=== PATIENT | female | born 1970 ===

== ENCOUNTER 2025-10-13 13:44 | Outpatient (AMB) | payer OTHER, SELFPAY ==
--- NOTE | 2025-10-13 14:10 | A.OFFVIS_ITS ---
Intake Visit Reasons: 6M [employer] Engineer Required: Yes [employer] Control [employer] Engineer Name: #[id number] Allergies No Known Allergies Allergy (Verified 10/13/25 14:14) Medication List - Last Reconciled 10/13/25 by Carmen Beltrán CNP atorvastatin 80 mg PO DAILY cyanocobalamin (vitamin B-12) mcg PO dulaglutide (Trulicity) 4.5 mg subcut QWEEK empagliflozin (Jardiance) 25 mg PO DAILY gabapentin 100 mg PO DAILY lisinopril 2.5 mg PO DAILY metformin 1,000 mg PO BID sertraline mg PO HPI Comments Details: 55-year-old woman with diabetes since at least 2018, bilateral carpal tunnel syndrome, and diabetic peripheral neuropathy. She started with numbness to both hands along with numbness, tingling, and pain, a burning sensation, to toes around fall 2023. She was doing okay. She was having some occasional numbness to hands, using wrist splints at night as needed. She was having some more pain to feet, primarily R heel. Gabapentin dose increased from 100mg to 300mg at last appointment, but she did not try increased dose. Medication helped with pain some, but pain would return. Numbness and tingling to feet was unchanged. She was walking with cane, no falls. Blood sugar was regular. [facility] Medical History (Updated 10/13/25 @ 14:14 by Carmen Beltrán CNP) Hyperlipidemia Diabetes Diabetic peripheral neuropathy Carpal tunnel syndrome Review of Systems Const Denies chills, Denies daytime sleepiness, Reports difficulty sleeping, Denies fatigue, Denies fever(s), Denies frequent falls, Reports headache(s), Denies increased appetite, Denies poor appetite, Denies snoring, Denies weakness, Denies weight gain and Denies weight loss Eyes Denies loss of vision ENT Denies vertigo, Reports dizziness, Reports headache(s) and Reports neck pain Card Denies chest pain at rest, Denies chest pain with activity, Denies syncope, Denies leg edema, Denies palpitations, Denies dyspnea and Denies dyspnea on exertion Resp Denies cough, Denies dyspnea, Denies dyspnea on exertion and Denies snoring GI Denies abdominal pain, Denies constipation, Denies heartburn, Denies diarrhea and Denies nausea Denies urinary frequency, Denies urinary incontinence and Denies urinary urgency Musc Denies abnormal gait, Reports back pain, Denies myalgias, Denies arthralgias, Reports neck pain, Reports numbness and Reports tingling Neuro Denies abnormal gait, Denies vertigo, Reports dizziness, Denies syncope, Denies frequent falls, Reports headache(s), Denies lack of coordination, Denies loss of vision, Denies memory loss, Reports numbness, Denies Other visual disturbances, Denies restless legs, Denies seizure-like activity, Reports tingling, Denies paresthesias, Denies tremor(s) and Denies weakness Psych Denies anxiety, Denies depression, Denies auditory hallucinations, Denies memory loss and Denies visual hallucinations Endo Denies fatigue and Denies palpitations Physical Exam Const Other: General Appearance:? normal, in no acute distress. Heart:? S1, S2 normal, no murmurs. Lungs:? clear anteriorly and posteriorly. Musculoskeletal:? normal. Extremities:? no edema. Psych:? alert, oriented, cognitive function intact, cooperative with exam. Neuro Other: Abnormal Neurological Findings:?5-/5 R research scholar. Decreased pin prick distal to mid tarsal level. Walking with cane. ? Mental Status: alert and oriented X 3. Normal attention, orientation, memory, and affect. Cranial Nerves: Pupils are equal, round, and reactive to light. External ocular muscles are intact. Visual montaño are full, no ptosis. Face is symmetrical, no facial weakness or droop. Facial sensations are normal. Tongue protrudes in midline. Palate elevates symmetrically. Shoulder shrugging is normal Motor Examination: As above. Sensory Exam: As above. Coordination: No ataxia. No titubation. Gait Exam: With cane. Cerebellar Signs: [id number] is okay. Extrapyramidal System: No tremor, rigidity with normal facial expressions. No bradykinesia. No bradyphrenia. Normal arm swing and posture. No propulsion or retropulsion. Speech: Normal. Assessment & Plan Assessment & Plan (1) Bilateral carpal tunnel syndrome: Code(s): G56.03 - Carpal tunnel syndrome, bilateral upper limbs Category: Medical Plan: Continue using wrist splints at night as needed. (2) Diabetic peripheral neuropathy: Code(s): E11.42 - Type 2 diabetes mellitus with diabetic polyneuropathy Category: Medical Plan: Increase gabapentin 100mg 1 capsule twice a day x1 week, then 1 capsule three times a day, use/side effects reviewed. Control blood sugar, stay physically active, use cane for additional support. Follow up in 3 months or sooner as needed. Medications: New gabapentin 100 mg orally 1 capsule twice a day x1 week, then 1 capsule three times a day; 90 caps 2RF 30 days Coding Level of Care Code Est Pt Level 4 (11681) Diagnoses Bilateral carpal tunnel syndrome G56.03 Diabetic peripheral neuropathy E11.42
--- OUTSIDE RECORDS SUMMARY | 2025-10-13 20:00 | XMS_ITS | Clinical Summary ---
Author Organization [facility] [address] [facility] Address [address] [place] [address] Phone Care Team Providers Care National Sales Name Role Phone Erika Nails MD Primary Care Provider [phone] Allergies No known active allergies Medications blood-glucose meter kit Check blood sugar twice a day 12/01/19 18 Active estrogen, conjugated,-med roxyPROGESTERon e (Prempro) 0.625-2.5 mg per tablet Take 1 tablet by mouth 1 (one) time each day. Active pen needle, diabetic (Comfort EZ Pen [place]) 33 gauge x 5/16 needle USE TO INJECT ONCE A DAY 100 each 1 10/10/20 24 Active metFORMIN (GLUCOPHAGE) 1,000 mg tablet Take 1 tablet (1,000 mg total) by mouth 2 (two) times a day with meals. 180 tablet 3 06/09/20 25 Active sertraline (ZOLOFT) 50 mg tablet Take 1.5 tablets (75 mg total) by mouth 1 (one) time each day. 90 tablet 1 06/09/20 25 Active lisinopriL (PRINIVIL,ZESTR IL) 2.5 mg tablet Take 1 tablet (2.5 mg total) by mouth 1 (one) time each day. 90 tablet 1 06/09/20 25 Active gabapentin (NEURONTIN) 100 mg capsule Take 1 capsule (100 mg total) by mouth 1 (one) time each day. 90 capsule 1 06/09/20 25 Active empagliflozin (Jardiance) 25 mg tablet Take 1 tablet (25 mg total) by mouth 1 (one) time each day. 90 tablet 3 06/09/20 25 Active cyanocobalamin (VITAMIN B-12) 2,000 mcg tabletIndicatio ns:Low serum vitamin B12 Take 1 tablet Monday to Monday. 90 tablet 06/09/20 Active atorvastatin (LIPITOR) 80 mg tablet Take 1 tablet (80 mg total) by mouth 1 (one) time each day. 90 each 06/09/20 25 Active magnesium glycinate 100 mg magnesium capsule Take 100 mg (1 capsule total) by mouth 1 (one) time each day. 90 each 06/09/20 25 Active lancets 30 gauge misc USE DIRECTED TWICE DAILY TO TEST BLOOD SUGAR 200 each 07/18/20 Active blood sugar diagnostic (FreeStyle Lite Strips) test strip Use as instructedUSE DIRECTED TO TEST TWICE DAILY 200 each 07/18/20 Active alcohol swabs (Alcohol Pads) pads, medicatedIndica tions:Type 2 diabetes mellitus with stage 3 chronic kidney disease, unspecified whether usp insulin use, unspecified whether stage 3a or 3b CKD ([facility] V24, [facility] V28) Apply topically 3 (three) times a day if needed (injections/testi ng sugar). 100 each 09/09/20 25 026 Active insulin glargine (Lantus Solostar U-100 Insulin) 100 unit/mL (3 mL) injection pen 40 units SC in the morning and 45 units in the evenings 45 mL 09/18/20 25 Active dulaglutide (Trulicity) 4.5 mg/0.5 mL pen injector injectionIndica tions:Type 2 diabetes mellitus with diabetic microalbuminuri a, with long-term current use of insulin ([facility] V24, [facility] V28) Inject 0.5 mL (4.5 mg total) under the skin every 7 (seven) days. 6 mL 09/18/20 25 Active insulin glargine (Lantus Solostar U-100 Insulin) 100 unit/mL (3 mL) injection pen 35 units SC in the morning and 45 units in the evenings 100 mL 06/09/20 25 025 Discontin ued(Reord er) dulaglutide (Trulicity) 3 mg/0.5 mL pen injector injectionIndica tions:Type 2 diabetes mellitus with stage 3 chronic kidney disease, unspecified whether usp insulin use, unspecified whether stage 3a or 3b CKD ([facility] V24, CMS/HCC V28) Inject 0.5 mL (3 mg total) under the skin every 7 (seven) days. 6 mL 06/09/20 025 Discontin ued(Formu pari change) Active Problems Problem Noted Date Diagnosed Date Type 2 diabetes mellitus wit h stage 3 chronic kidney disease, unspecified whether usp insulin use, unspecified whether stage 3a or 3b CKD 06/09/2025 Atherosclerosis of arteries 08/23/2022 Overview (07/24/2024): On ct chest, on high intesnity statin Pulmonary nodules 08/23/2022 Overview (07/24/2024): 2 less than 6 mm. Repeat in 1 year (smoking history). Macular edema 06/30/2020 Depression 09/13/2018 Microalbuminuria 02/28/2018 Tubular adenoma of colon 02/28/2018 Overview (07/24/2024): Benign 2022, repeat 10 years Tubular adenoma removed 12/2016 - due in 2021 Type 2 diabetes mellitus with renal manifestatio ns 02/28/2018 Assessment & Plan (02/04/2025 2:40 PM EDT): Diabetic diet discussed. She will continue her regimen of insulin Lantus, dulaglutide, metformin, empagliflozin. She is on lisinopril for microalbuminuria. She will continue gabapentin for her neuropathy. She will follow-up with neurology for neuropathy as well. Chronic pain of right knee 11/03/2017 HLD (hyperlipidemia) 11/03/2017 Assessment & Plan (02/04/2025 2:40 PM EDT): Low-cholesterol diet discussed. Continue current treatment of atorvastatin. Encounters Date Type Department Care Team Description 10/08/2025 [facility] [address] [place] [phone] Erika Nails MD 09/18/2025 1:15 PM EST Office Visit Endocrinology - [address] [phone] Marivel Jones PA Type 2 diabetes mellitus with diabetic microalbuminuria, with long-term current use of insulin ([facility] V24, [facility] V28) (Primary Dx); Microalbuminuria; Hyperlipidemia, unspecified hyperlipidemia type 09/10/2025 Results Follow-Up Endocrinology - [address] [phone] Marivel Jones PA 09/10/2025 Results Follow-Up Internal Medicine - [address] [phone] Raz Mcneill NP 09/09/2025 2:20 PM EST Lab Draw Station [address] Hyponatremia; Thrombocytosis; Type 2 diabetes mellitus with diabetic microalbuminuria, with long-term current use of insulin ([facility] V24, [facility] V28) 09/09/2025 1:15 PM EST Office Visit Internal Medicine - [address] [phone] Raz Mcneill NP Hyponatremia (Primary Dx); Type 2 diabetes mellitus with stage 3 chronic kidney disease, unspecified whether usp insulin use, unspecified whether stage 3a or 3b CKD ([facility] V24, [facility] V28); Thrombocytosis; Pain in both thighs 08/12/2025 3:18 AM EDT - 08/12/2025 3:45 AM EDT Emergency [facility] Emergency [address] [place] [phone] Avulsion of nail of left middle finger (Primary Dx); Tetanus toxoid vaccination administered at current visit; Laceration of left middle finger without foreign body with damage to nail, initial encounter Discharge Disposition: Home or Self Care 07/28/2025 Telephone Internal Medicine - [address] [phone] Erika Nails MD 07/18/2025 1:15 PM EDT Office Visit Endocrinology [address] [phone] Marivel Jones PA Type 2 diabetes mellitus with diabetic microalbuminuria, with long-term current use of insulin ([facility] V24, [facility] V28) (Primary Dx); Hyperlipidemia, unspecified hyperlipidemia type; Microalbuminuria from Last 3 Months Immunizations Immunization Administration Dates Next Due Influenza Quadravalent, MDCK , 0.5ml, preservative free (Flucelvax) 6mo and older 08/04/2022,06/30/2020,10/02/2019,09/13 Influenza, Unspecified 11/03/2021 Pfizer SARS-CoV-2 COVID-19, mRNA, LNP-S, preservative free 05/25/2021,05/04/2021 Pneumococcal conjugate 20 va lent (Prevnar 20, PCV 20) 2mo and older 02/04/2025 Pneumococcal polysaccharide 23 valent (Pneumovax 23) 2yo and older 12/01/2017 Tdap Tetanus diptheria acell ular pertussis (Boostrix; Adacel) 7yo and older 08/12/2025,01/02/2020 Surgical History Surgery Date Site/Laterality Comments CHOLECYSTECTOMY 2017 PROCEDURE: HISTORICAL CHOLECYSTECTOMY COLONOSCOPY 2017 PROCEDURE: HISTORICAL COLONOSCOPY; COMMENT: repeat at age 48. Strong family history colon cancer BREAST LUMPECTOMY Right PROCEDURE: ---- BREAST LUMP BIOPSY ----; COMMENT: abscess, drained BREAST BIOPSY Right PROCEDURE: BX BREAST; PERC NEEDLE CORE W/IMAG GUID; COMMENT: breast lump removed in [place] Medical History Medical History Date Comments Diabetes type 2, uncontrolled 11/03/2017 DX :Diabetes type 2, uncontrolled Hyperlipemia 11/03/2017 DX:Hyperlipemia Chronic pain of right knee 11/03/2017 DX:Ch ronic pain of right knee HLD (hyperlipidemia) 11/03/2017 DX:HLD (hyp erlipidemia) Depression 09/13/2018 DX:Depression Tubular adenoma of colon 02/28/2018 DX:Tubu lar adenoma of colon; COMMENT: Tubular adenoma removed 12/2016 - due in 2021 Type 2 diabetes, uncontrolle d, with retinopathy with macular edema 04/29/2019 DX:Type 2 diabetes, unc ontrolled, with retinopathy with macular edema; COMMENT: Lucentis injected 04/12/[address] Johann Tovar for severe macular edema OS, moderate OD Atherosclerosis of arteries 08/23/2022 DX:A therosclerosis of arteries; COMMENT: On ct chest, on statin, asa Pulmonary nodules 08/23/2022 DX:Pulmonary n odules; COMMENT: 2 less than 6 mm. Repeat in 1 year (smoking history). Family History Medical History Relation Name Comments Diabetes Brother 1 No Known Problems Brother 2 Diabetes Father Colon cancer Maternal Grandmother Diabetes Mother Kidney CA Liver disease Mother Diabetes Sister 1 Other: hypoglycemia Sister 2 Blindness Neg Hx cataract, glauc praneeth, macular degeneration, strabismus Breast cancer Neg Hx Ovarian cancer Neg Hx Uterine cancer Neg Hx Relation Name Status Comments Brother 1 Alive Brother 2 Alive Father Maternal Grandmother Mother Sister 1 Alive Sister 2 Alive Social History Tobacco Use Types Packs/Day Years Used Date Smoking Tobacco: Former Cigarettes Smokeless Tobacco: Never Tobacco Cessation:Counseling Given: Not Answered Alcohol Use Standard Drinks/Week Comments No 0 (1 standard drink = 0.6 oz pur e alcohol) Comments No Sex and Gender Information Value Date Recorded Sex Assigned at Female 05/06/2025 7:14 PM EDT Legal Sex Female 5:40 AM EST Gender Identity Female 05/06/2025 7:14 PM EDT Sexual Orientation Straight 05/06/2025 7: 14 PM EDT Last Filed Vital Signs Vital Sign Reading Time Taken Comments Blood Pressure 116/77 09/18/2025 1:14 PM EST Pulse 98 09/18/2025 1:14 PM EST Temperature 36.2 C (97.1 F) 09/18/2025 1:14 PM EST Respiratory Rate 16 08/11/2025 11:34 PM EDT Oxygen Saturation 100% 08/11/2025 11:34 PM EDT Inhaled Oxygen Concentration - - Weight 77.4 kg (170 lb 9.6 oz) 09/18/2025 1:14 P M EST Height 154.9 cm (5' 1 ) 09/18/2025 1:14 PM EST Body Mass Index 32.23 09/18/2025 1:14 PM EST Plan of Treatment Upcoming Encounters Date Type Department Care Team (Late st Contact Info) Description 12/01/2025 1:00 PM EST Office Visit Endocrinology - [facility] [address] [place], [place] [phone] Jg Mercado MD [address] [place] [address] 01/08/2026 3:00 PM EDT Office Visit Internal Medicine - [facility] [address] [place] [phone] Margret Sagastume, STEPHANIE [address] [place] [address] Health Maintenance Due Date Last Done Comments Hepatitis B Vaccines (1 of 3 - 19+ 3-dose series) 01/30/1987 Zoster Vaccines (1 of 2) 01/30/1987 RSV Immunization Adult Patients (1 - Risk 50-74 years 1-dose series) 01/30/2018 Social Influencers of Health Screening 10/08/2022 Depression Screening 10/30/2024 COVID-19 Vaccine ( season) 2025 11/21/2021, 05/25/2021, 05/04/2021 Influenza Vaccine (#1) 2025 , 11/03/2021, 06/30/2020, Additional history exists Breast Cancer Screening 07/24/2025 07/24/20 23, 07/24/2023, 07/22/2022, Additional history exists Diabetes: Annual Urine Albumin-Creatinine Ratio (uACR) 10/03/2025 10/03/2024, 02/02/2024, 02/02/2024 Diabetes: Annual Retina Eye Exam 12/10/2025 12/10/2024, 03/03/2023 Diabetes: Blood Sugar Control Test (HGBA1C) 03/09/2026 09/09/2025, 06/09/2025, 01/14/2025, Additional history exists Diabetes: Annual Foot Exam 07/08/2026 07/08/2025, Diabetes: Annual GFR (Glomerular Filtration Rate) 09/09/2026 09/09/2025, 05/06/2025, 10/03/2024, Additional history exists Colorectal Cancer Screening: Colonoscopy 03/15/2028 03/15/2023 Cervical Cancer Screening: HPV 10/26/2028 10/26/2023 Cholesterol Screening (Lipid Panel) 10/03/2029 10/03/2024, 02/02/2024, 02/02/2024 DTaP,Tdap,and Td Vaccines (3 - Td or Tdap) 08/12/2035 08/12/2025, 01/02/2020 HIV Screening Completed 07/31/2024, 07/31/2024 Hepatitis C Screening Completed 07/31/2024 Pneumococcal Vaccine: 50+ Years Completed 02/04/2025, 12/01/2017 HIB Vaccines Aged Out No longer eligi ble based on patient's age to complete this topic HPV Vaccines Aged Out No longer eligi ble based on patient's age to complete this topic Hepatitis A Vaccines Aged Out No long er eligible based on patient's age to complete this topic IPV Vaccines Aged Out No longer eligi ble based on patient's age to complete this topic MMR Vaccines Aged Out No longer eligi ble based on patient's age to complete this topic Meningococcal ACWY Vaccine Aged Out N o longer eligible based on patient's age to complete this topic Meningococcal B Vaccine Aged Out No l onger eligible based on patient's age to complete this topic RSV Immunization Patients Under 20 months Aged Out No longer eligible based on patient's age to complete this topic Varicella Vaccines Aged Out No longer eligible based on patient's age to complete this topic Procedures Procedure Name Priority Date/Time Associated Diagnosis Comments POC GLUCOSE Routine 09/18/2025 1:27 PM EST Type 2 diabetes mellitus with diabetic microalbuminuria, with long-term current use of insulin ([facility] V24, [facility] V28) CBC WITH AUTO DIFFERENTIAL Routine 09/09/2025 2:24 PM EST Thrombocytosis HEMOGLOBIN A1C Routine 09/09/2025 2:24 PM EST Type 2 diabetes mellitus with diabetic microalbuminuria, with long-term current use of insulin ([facility] V24, [facility] V28) CBC AND DIFFERENTIAL Routine 09/09/2025 2:24 PM EST Thrombocytosis BASIC METABOLIC PANEL Routine 09/09/2025 2:24 PM EST Hyponatremia ED LACERATION REPAIR Routine 08/12/2025 5:42 AM EDT POC GLUCOSE Routine 07/18/2025 1:09 PM EDT Type 2 diabetes mellitus with diabetic microalbuminuria, with long-term current use of insulin ([facility] V24, [facility] V28) MICROALBUMIN CREATININE URINE RATIO Routine 10/03/2024 3:17 PM EST Depression, unspecified depression type Hyperlipidemia, unspecified hyperlipidemia type Microalbuminuria Type 2 diabetes mellitus with other kidney complication, unspecified whether usp insulin use ([facility] V24, [facility] V28) LIPID PANEL WITH REFLEX TO DIRECT LDL Routine 10/03/2024 3:07 PM EST Vitamin B12 deficiency Type 2 diabetes mellitus with other kidney complication, unspecified whether usp insulin use ([facility] V24, [facility] V28) Hyperlipidemia, unspecified hyperlipidemia type Hyperlipemia HEPATITIS C SCREENING Routine 07/31/2024 HIV SCREENING Routine 07/31/2024 HPV Routine 10/26/2023 JOSE L SCREENING DIGITAL Routine 07/24/2023 5:50 PM EDT Encounter for screening mammogram for malignant neoplasm of breast from Last 3 Months or Most Recently Relevant to Health Maintenance Results * POC glucose manually resulted (09/18/2025 1:27 PM EST) Only the most recent of2 resultswithin the time period is included. Glucose POC 241 mg/dL Blood Capillary blood specimen / Unknown 09/18/2025 1:27 PM EST us Marivel GONZALEZ POINT OF CARE TEST ENTER/ED IT ORDERABLES Final Result * CBC auto differential (09/09/2025 2:24 PM EST) [facility] WBC 7.0 4.8 - 10.8 K/mcL LAB HEMETOLOGY METHOD 09/09/2025 6:05 PM [facility] RBC 4.70 3.80 - 4.80 M/mcL LAB HEMETOLOGY METHOD 09/09/2025 6:05 PM [facility] Hemoglobin 13.1 11.5 - 16.0 g/dL LAB HEMETOLOGY METHOD 09/09/2025 6:05 PM [facility] Hematocrit 41.0 35.0 - 47.0 % LAB HEMETOLOGY METHOD 09/09/2025 6:05 PM [facility] MCV 88.0 79.0 - 98.0 FL LAB HEMETOLOGY METHOD 09/09/2025 6:05 PM [facility] MCH 28.1 27.0 - 32.0 pcg LAB HEMETOLOGY METHOD 09/09/2025 6:05 PM [facility] MCHC 32.0 32.0 - 37.0 g/dL LAB HEMETOLOGY METHOD 09/09/2025 6:05 PM [facility] RDW 14.2 11.0 - 15.0 % LAB HEMETOLOGY METHOD 09/09/2025 6:05 PM [facility] Platelets 400 130 - 400 K/mcL LAB HEMETOLOGY METHOD 09/09/2025 6:05 PM [facility] MPV 10.6 7.0 - 11.0 FL LAB HEMETOLOGY METHOD 09/09/2025 6:05 PM [facility] NRBC 0.0 <1.0 % LAB HEMETOLOGY METHOD 09/09/2025 6:05 PM [facility] NRBC Absolute 0.00 <0.10 K/mcL LAB HEMETOLOGY METHOD 09/09/2025 6:05 PM [facility] Neutrophils Relative 44.4 % LAB HEMETOLOGY METHOD 09/09/2025 6:05 PM [facility] Lymphocytes Relative 41.8 % LAB HEMETOLOGY METHOD 09/09/2025 6:05 PM [facility] Monocytes Relative 8.5 % LAB HEMETOLOGY METHOD 09/09/2025 6:05 PM [facility] Eosinophils Relative 3.4 % LAB HEMETOLOGY METHOD 09/09/2025 6:05 PM [facility] Basophils Relative 1.6 % LAB HEMETOLOGY METHOD 09/09/2025 6:05 PM [facility] Immature Granulocytes Relative 0.3 % LAB HEMETOLOGY METHOD 09/09/2025 6:05 PM [facility] Neutrophils Absolute 3.09 1.50 - 7.00 K/mcL LAB HEMETOLOGY METHOD 09/09/2025 6:05 PM [facility] Lymphocytes Absolute 2.91 1.00 - 5.00 K/mcL LAB HEMETOLOGY METHOD 09/09/2025 6:05 PM [facility] Monocytes Absolute 0.59 0.20 - 1.00 K/mcL LAB HEMETOLOGY METHOD 09/09/2025 6:05 PM [facility] Eosinophils Absolute 0.24 0.00 - 0.50 K/mcL LAB HEMETOLOGY METHOD 09/09/2025 6:05 PM [facility] Basophils Absolute 0.11 0.00 - 0.20 K/mcL LAB HEMETOLOGY METHOD 09/09/2025 6:05 PM [facility] Immature Granulocytes Absolute 0.02 0.00 - 0.03 K/mcL LAB HEMETOLOGY METHOD 09/09/2025 6:05 PM [facility] Blood Venous blood specimen / Unknown Venipuncture / Unknown 09/09/2025 2:24 PM EST 09/09/2025 2:24 PM EST Raz Mcneill BRANCH OPERATIONS COORDINATOR LAB BLOOD ORDERABLES Final Res ult [facility] [address] [place] [address], [place] [phone] * (ABNORMAL) Hemoglobin A1c (09/09/2025 2:24 PM EST) Pathologist [facility] Hemoglobin A1C 9.9(H) <6.5 % LAB CHEMISTRY METHOD 09/09/2025 10:04 PM EST [facility] Mean Bld Glu Estim. 237 mg/dL LAB CHEMISTRY METHOD 09/09/2025 10:04 PM [facility] Blood Venous blood specimen / Unknown Venipuncture / Unknown 09/09/2025 2:24 PM EST 09/09/2025 2:24 PM EST Marivel Jones PA LAB BLOOD ORDERABLES Final Result Performing Organization Address [facility]/ZIP Co de Phone Number [facility] [address] [place] [address], [place] [phone] * (ABNORMAL) Basic metabolic panel (09/09/2025 2:24 PM EST) [facility] Sodium 138 133 - 145 mmol/L LAB CHEMISTRY METHOD 09/09/2025 6:37 PM [facility] Potassium 4.9 3.5 - 5.5 mmol/L LAB CHEMISTRY METHOD 09/09/2025 6:37 PM [facility] Chloride 104 96 - 110 mmol/L LAB CHEMISTRY METHOD 09/09/2025 6:37 PM EST [facility] CO2 31 21 - 32 mmol/L LAB CHEMISTRY METHOD 09/09/2025 6:37 PM [facility] Anion Gap 3 3 - 11 LAB CHEMISTRY METHOD 09/09/2025 6:37 PM [facility] Glucose 173(H) 70 - 100 mg/dL LAB CHEMISTRY METHOD 09/09/2025 6:37 PM EST [facility] BUN 17 5 - 25 mg/dL LAB CHEMISTRY METHOD 09/09/2025 6:37 PM [facility] Creatinine 0.65 0.50 - 1.10 mg/dL LAB CHEMISTRY METHOD 09/09/2025 6:37 PM [facility] eGFR 103 >=60 mL/min/1. 73m2 LAB CHEMISTRY METHOD 09/09/2025 6:37 PM EST [facility] Comment:Calculation based on the Chronic Kidney Disease Epidemiology Collaboration (CKD-EPI) equation refit without adjustment for race. BUN/Creatinine Ratio 26.2 LAB CHEMISTRY METHOD 09/09/2025 6:37 PM [facility] Calcium 10.2 8.5 - 10.5 mg/dL LAB CHEMISTRY METHOD 09/09/2025 6:37 PM [facility] Blood Venous blood specimen / Unknown Venipuncture / Unknown 09/09/2025 2:24 PM EST 09/09/2025 2:24 PM EST us Raz Mcneill NP LAB BLOOD ORDERABLES Final Res ult [facility] [address] [place] [address], * Laceration Repair (08/12/2025 5:42 AM EDT) Narrative Carmella Willett MD - 08/12/2025 5:42 AM EDT Carmella Willett MD 08/12/2025 7:02 AM Laceration Repair Date/Time: 08/12/2025 5:42 AM Performed by: CARLOS Gutierrez Authorized by: Carmella Willett MD Consent: Consent obtained: Verbal Consent given by: Patient Risks, benefits, and alternatives were discussed: yes Risks discussed: Infection, need for additional repair, nerve damage, pain and retained foreign body Alternatives discussed: No treatment [place] protocol: Patient identity confirmed: Verbally with patient Anesthesia: Anesthesia method: None Laceration details: Location: Finger Finger location: L long finger Length (cm): 1 Depth (mm): 2 Pre-procedure details: Preparation: Patient was prepped and draped in usual sterile fashion Exploration: Limited defect created (wound extended): yes Hemostasis achieved with: Direct pressure (Silver nitrate) Imaging outcome: foreign body not noted Wound exploration: wound explored through full range of motion Contaminated: no Treatment: Area cleansed with: Soap and water Amount of cleaning: Standard Irrigation solution: Sterile saline Irrigation volume: 10 Irrigation method: Pressure wash Debridement: None Undermining: None Scar revision: no Skin repair: Repair method: Silver nitrate. Approximation: Approximation: Loose Repair type: Repair type: Simple Post-procedure details: Dressing: Sterile dressing Procedure completion: Tolerated well, no immediate complications us Carmella Willett MD IN CLINIC/BEDSIDE ORDERABLE S Final Result * (ABNORMAL) Microalbumin creatinine urine ratio (10/03/2024 3:17 PM EST) Creatinine, Urine 32.0 mg/dL LAB CHEMISTRY METHOD 10/03/2024 7:00 PM EST [facility] Microalb, Ur 30.3(H) 0.0 - 29.0 mg/L LAB CHEMISTRY METHOD 10/03/2024 7:00 PM [facility] Microalb/Crea t Ratio 95(H) <30 mg/g creat LAB CHEMISTRY METHOD 10/03/2024 7:00 PM EST [facility] Urine Urine specimen obtained by clean catch procedure / Unknown Non-blood Collection / Unknown 10/03/2024 3:17 PM EST 10/03/2024 3:17 PM EST us Raz Mcneill NP LAB URINE ORDERABLES Final Res ult [facility] [address] [place] [address], [place] [phone] * (ABNORMAL) Lipid panel with reflex to direct LDL (10/03/2024 3:07 PM EST) [facility] Cholesterol 178 0 - 200 mg/dL LAB CHEMISTRY METHOD 10/03/2024 7:08 PM [facility] Triglycerides 247(H) 0 - 150 mg/dL LAB CHEMISTRY METHOD 10/03/2024 7:08 PM [facility] HDL 47 >=40 mg/dL LAB CHEMISTRY METHOD 10/03/2024 7:08 PM [facility] LDL Calculated 82 0 - 100 mg/dL LAB CHEMISTRY METHOD 10/03/2024 7:08 PM [facility] VLDL Cholesterol Patel 49.4 mg/dL LAB CHEMISTRY METHOD 10/03/2024 7:08 PM [facility] Non HDL Chol. (LDL+VLDL) 131 <145 mg/dL LAB CHEMISTRY METHOD 10/03/2024 7:08 PM [facility] Chol/HDL Ratio 3.8 0.0 - 4.4 LAB CHEMISTRY METHOD 10/03/2024 7:08 PM [facility] Blood Venous blood specimen / Unknown Venipuncture / Unknown 10/03/2024 3:07 PM EST 10/03/2024 3:07 PM EST Raz Mcneill BRANCH OPERATIONS COORDINATOR LAB BLOOD ORDERABLES Final Res ult [facility] [address] [place] [address], * HIV Screening (07/31/2024) Pathologist [facility] HIV Screening abstracted Historical Provider HEALTH MAINTENANCE Final Result * Hepatitis C Screening (07/31/2024) Pathologist [facility] Hepatitis C Screening abstracted Historical Provider HEALTH MAINTENANCE Final Result * Cervical Cancer Screening: HPV (10/26/2023) [facility] Cervical Cancer Screening: HPV negative abstracted us Historical Provider HEALTH MAINTENANCE Final Result * [facility] SCREENING DIGITAL (07/24/2023 5:50 PM EDT) Anatomical Region Laterality Modality Mammography 07/24/2023 1:12 PM EDT Narrative 07/24/2023 5:50 PM EDT [facility] Diagnostic Imaging Department [address] [place] [id number] Patient: NANCI STRICKLANDOLIVIA BUNDY /Age/Sex: 1970 - 53 - F Unit#: [id number] Location/Status: [facility] CLI Mnemonic/Ordering Site: [facility] Ordering Physician: SINGH JULIO MD [facility] Screening Digital - 07/24/23 - 1335 Report Status:Signed EXAM: [facility] Screening Digital EXAM DATE AND TIME: 07/24/2023 1:35 PM HISTORY: Screening. COMPARISON: 07/22/22, 07/28/21, 07/24/20 TECHNIQUE: Bilateral digital breast tomosynthesis was performed in the CC and MLO projections. Computer aided detection with [employer] 3D 3.1 was employed. TISSUE DENSITY: a. The breasts are almost entirely fatty. FINDINGS: No suspicious masses, grouped microcalcifications, or areas of architectural distortion are seen. Vascular calcification is noted. The skin is unremarkable. IMPRESSION: Stable mammographic appearance of the breasts. No evidence of malignancy is seen. A negative mammogram in the presence of a clinically suspicious palpable abnormality does not preclude the possibility of malignancy or alter the indications for biopsy. BI-RADS: Category 2: Benign RECOMMENDATION(S): 1: Routine screening mammogram BILATERAL in 1 year. Dictating Physician: WILLOW DALE MD Electronically Signed by: WILLOW DALE MD Dic Date/Time: 07/24/231748 Sign date/Time: 07/24/231749 Procedure Note Willow Dale MD - 12/05/2023 [facility] Diagnostic Imaging Department [address] [place] [address] Patient: OLIVIA ROY D.O.B./Age/Sex: 1970 - 53 -F Unit#: [id number] Location/Status: [facility] CLI Mnemonic/Ordering Site: [facility] Ordering Physician: SINGH JULIO MD [facility] Screening Digital - 07/24/23 - 1335 Report Status:Signed EXAM: [facility] Screening Digital EXAM DATE AND TIME: 07/24/2023 1:35 PM HISTORY: Screening. COMPARISON: 07/22/22, 07/28/21, 07/24/20 TECHNIQUE: Bilateral digital breast tomosynthesis was performed in the CCand MLO projections. Computer aided detection with [employer] 3D 3.1was employed. TISSUE DENSITY: a. The breasts are almost entirely fatty. FINDINGS: No suspicious masses, grouped microcalcifications, or areas ofarchitectural distortion are seen. Vascular calcification is noted. The skin isunremarkable. IMPRESSION: Stable mammographic appearance of the breasts. No evidence of malignancyis seen. A negative mammogram in the presence of a clinically suspicious palpable abnormality does not preclude the possibility of malignancy or alter the indications for biopsy. BI-RADS: Category 2: Benign RECOMMENDATION(S): 1: Routine screening mammogram BILATERAL in 1 year. Dictating Physician: WILLOW DALE MD Electronically Signed by: WILLOW DALE MD Dic Date/Time: 07/24/231748 Sign date/Time: 07/24/231749 us Singh Julio MD IMG BI PROCEDURES Final R esult from Last 3 Months or Most Recently Relevant to Health Maintenance Insurance [facility] [employer] Care Teams National Sales Relationship Specialty Start Date End Date Erika Nails MD [address] [place] [phone] PCP - General Internal Medicine 07/28/25
--- OUTSIDE RECORDS SUMMARY | 2025-10-13 20:00 | XMS_ITS | Encounter Summary ---
Author Organization [facility] Address [address] [place] [address] Care Team Providers Care Grade School Teacher Name Role Phone Erika Nails MD Primary Care Provider [phone] Reason for Visit * Reason Onset Date Comments PT-1 10/08/2025 Neurology Encounter Details Date Type Department Care Team ([facility] Contact Info) Description 10/08/2025 Telephone Internal Medicine - [facility] [address] [place], [place] [phone] Erika Nails MD [address] [place] [address] Social History Tobacco Use Types Packs/Day Years Used Date Smoking Tobacco: Former Cigarettes Smokeless Tobacco: Never Alcohol Use Standard Drinks/Week Comments No 0 (1 standard drink = 0.6 oz pur e alcohol) Comments No Sex and Gender Information Value Date Recorded Sex Assigned at Female 05/06/2025 7:14 PM EDT Legal Sex Female 5:40 AM EST Gender Identity Female 05/06/2025 7:14 PM EDT Sexual Orientation Straight 05/06/2025 7: 14 PM EDT documented as of this encounter Progress Notes * Paul Lanier [place] - 10/08/2025 2:35 PM EST PT I form was completed / submitted on line with [employer] PT 1 tracking # is: [id number] #6/ year * Bell Elizondo - 10/08/2025 1:12 PM EST PT-1 Request Call Lisa/[facility]'s Medicaid Group new provider or submitter number is [id number] Verify and document patients [place] Health insurance ID # (NOT [facility] ID): [id number] Payor: [employer] / Plan: [employer] MEDICAID / Product Type: *No Product type* / Patient mailing address: [address] [place] [phone] (home) [phone] (work) Pt. demographics verified? yes If not accurate, update registration. Is this a NEW request or a RENEWAL? Renewal [facility] Name (first & last) of treating provider? required : Carmen cherry What is the medical reason why the patient is seeing the above provider? Neuropathy Address/Zip code for treating provider: [address] [place] [address] [address] Phone # for treating provider: Is the provider in the [facility] network (do they accept ID Health insurance)? yes What specialtly is this provider? Neurology When is the visit scheduled for? 10/13 2pm How often you will be seeing this particular provider? 6 times per year Do you have friends or family who can transport you to this visit? no If yes, do not complete request. Is there anything stopping you from using public transportation? If yes, explain: yes , hard times walking Is there a medical reason (diagnosis) why you are unable to use public transportation? If yes, explain: Yes,hard time walking Does patient carry self-administered oxygen? no Does patient require door through door or room to room service( ex: member cannot ambulate or wait independently outside their home/facility for transportation. no Is this is for an Adult Day Program or Suboxone clinic No If yes to above what is arrival time N/A and what is departure time N/A If yes to above how many days a week? N/A Do you need a wheelchair van? no If you use a wheelchair what is the height, width & length of the wheelchair? N/A Do you need an escort to accompany you? If yes, explain why. no Will you have an alternative pick-up address? no Do you have a service animal? no PT DOES NOT NEED RELEASE OF INFORMATION SIGNED documented in this encounter Plan of Treatment Upcoming Encounters Date Type Department Care Team (Late st Contact Info) Description 12/01/2025 1:00 PM EST Office Visit Endocrinology - [place] [address] [place] [phone] Jg Mercado MD [address], [place] 01/08/2026 3:00 PM EDT Office Visit Internal Medicine - [address] [phone] Margret Sagastume NP [address] [place] [address] documented as of this encounter Visit Diagnoses Not on filedocumented in this encounter Care Teams Grade School Teacher Relationship Specialty Start Date End Date Erika Nails MD [address] [place] [address] PCP - General Internal Medicine 07/28/25 documented as of this encounter
--- OUTSIDE RECORDS SUMMARY | 2025-10-13 20:00 | XMS_ITS ---
Author Name [facility] Organization Unknown Care Team Organization Name Specialty Phone Email Start Date End Da te [facility] Singh Robledo [facility] 09/06/2022 06/17/2024
--- OUTSIDE RECORDS SUMMARY | 2025-10-13 20:00 | XMS_ITS | Encounter Summary ---
Author Organization [facility] Address [address] [place] [address] Care Team Providers Care Training Coordinator Name Role Phone Erika Nails MD Primary Care Provider [phone] Encounter Details Date Type Department Care Team (Late Contact Info) Description 09/10/2025 Results Follow-Up Internal Medicine - [address] [phone] Raz Mcneill NP [address] [place] [address] Social History Tobacco Use Types Packs/Day Years [...] PM EDT documented as of this encounter Plan of Treatment Upcoming Encounters Date Type Department Care Team (Late Contact Info) Description 12/01/2025 1:00 PM EST Office Visit Endocrinology - [address] [phone] Jg Mercado MD [address] [place] [address] 01/08/2026 3:00 PM EDT Office Visit Internal Medicine - [address] [phone] Margret Sagastume, STEPHANIE [address] [place], [place] documented as of this encounter Visit Diagnoses Not on filedocumented in this encounter Care Teams Training Coordinator Relationship Specialty Start Date End Date Erika Nails MD [address] [place] [address] PCP - General Internal Medicine 07/28/25 documented as of this encounter
--- OUTSIDE RECORDS SUMMARY | 2025-10-13 20:00 | XMS_ITS | Encounter Summary ---
Author Organization [facility] Address [address] [place] [address] Care Team Providers Care Advanced Clinical Specialist Name Role Phone Erika Nails MD Primary Care Provider [phone] Encounter Details Date Type Department Care Team (Late Contact Info) Description 09/10/2025 Results Follow-Up [facility] - [address] [phone] Marivel Jones PA [address] [place] [address] Social History Tobacco Use Types Packs/Day Years [...] 1:00 PM EST Office Visit Endocrinology - [address] [phone] Jg Mercado MD [address] [place], [place] 01/08/2026 3:00 PM EDT Office Visit Internal Medicine - [facility] [address] [place], [place] [phone] Margret Sagastume, STEPHANIE [address] [place], [place] documented as of this encounter Visit Diagnoses Not on filedocumented in this encounter Care Teams Advanced Clinical Specialist Relationship Specialty Start Date End Date Erika Nails MD [address] [place], [place] PCP - General Internal Medicine 07/28/25 documented as of this encounter
== END 2025-10-13 14:28 | disposition home or self-care (01) ==
PROVIDERS: PCP Internal Medicine; Visit Provider Registered Nurse
DX: G56.03 Carpal tunnel syndrome, bilateral upper limbs (principal); E11.42 Type 2 diabetes mellitus with diabetic polyneuropathy
CPT/HCPCS: 99214

== ENCOUNTER → 2025-10-13 13:44 | Outpatient (BNVA) | payer OTHER, SELFPAY | PROVIDERS: PCP Internal Medicine; Visit Provider Registered Nurse | DX: G56.03 Carpal tunnel syndrome, bilateral upper limbs (principal); E11.42 Type 2 diabetes mellitus with diabetic polyneuropathy | CPT/HCPCS: 99212 ==